=== PATIENT | female | born 1985 | race Caucasian/White ===

== ENCOUNTER 2019-12-08 14:57 | Emergency (ER) | payer BC, SELFPAY ==
[2019-12-08 15:03] VITALS: BP 130/78; PULSE 68; RESP 16; TEMP 36.9; O2SAT 99
--- NOTE | 2019-12-08 15:14 | ED.EAR ---
HPI - Ear Problem General Chief complaint: Ear Stated complaint: ear pain Time Seen by Provider: 12/08/19 15:12 Source: patient and RN notes reviewed Mode of arrival: ambulatory Limitations: no limitations History of Present Illness HPI Narrative: 34-year-old female presents with concern for right jaw pain/ear pain when she chews. She denies any recent cold symptoms, nasal congestion, rhinorrhea. Reports little to no pain at rest, pain in the right jaw when she chews. Denies any history of TMJ. Reports she is trying to get so she is avoiding taking ibuprofen. MD Complaint: other (Jaw pain) Related Data Home Medications Medication Instructions Recorded Confirmed 12/08/19 lansoprazole 15 mg PO DAILY 12/08/19 12/08/19 loratadine [Claritin] 10 mg PO DAILY 12/08/19 12/08/19 Allergies Allergy/AdvReac Type Severity Reaction Status Date / Time amoxicillin Allergy Hives Verified 12/08/19 15:06 Review of Systems Review of Systems: Narrative: CONSTITUTIONAL: Denies malaise, chills, sweats, or fever. EYES: Denies visual changes, redness, or discharge. ENT: Denies rhinorrhea, congestion, sinus pain, or sore throat. Reports right jaw pain near her ear. Denies discharge from the right ear CARDIOVASCULAR: Denies chest pain, palpitations, or edema. RESPIRATORY: Denies cough or dyspnea. SKIN: Denies rash or itching. MUSCULOSKELETAL: Denies myalgia. NEUROLOGIC: Denies headache. All systems reviewed & are unremarkable except as noted in HPI and below PMFSH Comments At time of signature, agree with nursing past medical, surgical, social and family history. There is no relevant family history pertinent to the presenting complaint Exam Narrative: Exam Narrative: GENERAL: Well-appearing, well-nourished, and in no acute distress. HEAD: Normocephalic, atraumatic. EYES: PERRLA, conjunctivae clear, and EOMI. No nystagmus. ENT: Nares clear, turbinates pink, no rhinorrhea or epistaxis. Mucous membranes moist. TM pearly schreiber with sharp light reflex bilaterally; no tragal tenderness. Oropharynx without erythema or lesions. Tonsils not enlarged and without exudate. Minimal jaw clicking noted on the right. No facial erythema, edema, induration. No salivary duct obstruction noted NECK: Supple. No lymphadenopathy. CHEST: No respiratory distress. Speaks in full sentences. HEART: Regular rate and rhythm. No murmur heard. Normal peripheral pulses. SKIN: Warm, dry, no rash. NEURO: Alert and oriented x3. PSYCH: Normal mood and affect Course Course Emergency Course: Patient is aware of diagnosis, understands and agrees to treatment plan. Anticipatory guidance given. Patient agrees to follow-up as directed and is aware of reasons to seek care at the emergency department. Portions of this record may have been created with voice recognition software Vital Signs Vital signs: Vital Signs Temperature 98.5 F 12/08/19 15:03 Pulse Rate 68 12/08/19 15:03 Respiratory Rate 16 12/08/19 15:03 Blood Pressure 130/78 12/08/19 15:03 Pulse Oximetry 99 12/08/19 15:03 Temperature 98.5 F 12/08/19 15:03 Pulse Rate 68 12/08/19 15:03 Respiratory Rate 16 12/08/19 15:03 Blood Pressure 130/78 12/08/19 15:03 Pulse Oximetry 99 12/08/19 15:03 Reviewed. Patient has been instructed to follow up with her primary care provider within the next week regarding her elevated blood pressure today. Medical Decision Making MDM Narrative Medical decision making narrative: Differential diagnosis considered: Strep pharyngitis, allergic rhinitis, upper respiratory tract infection, sinusitis, rhinosinusitis, nasopharyngitis. viral pharyngitis, otitis media, otitis externa, otitis effusion, pneumonia, bronchitis, viral cough syndrome, viral syndrome, and influenza. Exam findings show no acute concerns or changes; patient is non-toxic appearing and is in no distress. Patient is appropriate for outpatient treatment and follow-up. V
== END 2019-12-08 15:25 | disposition home or self-care (01) ==
PROVIDERS: Emergency Provider Nurse Practitioner
DX: R68.84 Jaw pain (principal)
CPT/HCPCS: 99201; G0463